=== PATIENT | male | born 1995 | race Caucasian/White ===

== ENCOUNTER 2017-08-05 18:47 | Emergency (ER) | payer SELFPAY ==
[2017-08-05 19:06] VITALS: BP 133/82
[2017-08-05] MEDS ORDERED: predniSONE TAB* 20 MG PO ONE (19:48)
[2017-08-05] MEDS ORDERED: Lidocaine 1% INJ* 10 MG/ML 30 ML SDV INJ ONE (19:49)
[2017-08-05] MEDS ORDERED: cefTRIAXone VIAL(*) 1,000 MG VIAL IM ONE (19:49)
--- NOTE | 2017-08-05 20:00 | RAD ---
INDICATION: Left hand injury COMPARISON: June 16, 2013 TECHNIQUE: AP and lateral views were obtained. FINDINGS: There are no acute bony findings. There is a healed fracture the proximal phalanx of the fifth digit. The joint spaces soft tissues are normal IMPRESSION: NO ACUTE BONY CHANGE. OLD, HEALED FIFTH METACARPAL FRACTURE.
--- NOTE | 2017-08-05 20:21 | ED ---
Upper Extremity Pain - HPI Summary HPI Summary: 22 yr old male with the complaint of trauma to left hand. Onset of symptoms two days ago when he hit his hand on the lever of a wood splitter. his pain is mostly in the 4th MP joint area. Pain moderate. 5/10. Non radiating. Worse with touching area. No other complaints. or injuries. He broke his 5th finger a few years ago. - History of Current Complaint Chief Complaint: UCUpperExtremity Stated Complaint: LEFT HAND PAIN Time Seen by Provider: 08/05/17 20:11 - Allergies/Home Medications Allergies/Adverse Reactions: Allergies Allergy/AdvReac Type Severity Reaction Status Date / Time Alcohol [From Whiskey] Allergy Decreased Verified 08/05/17 19:06 Respirations Bee Venom Allergy Swelling Verified 08/05/17 19:06 PMH/Surg Hx/FS Hx/Imm Hx Previously Healthy: Yes Infectious Disease History: No Infectious Disease History: Denies: Traveled Outside the [place] in Last 30 Days - Social History Alcohol Use: Weekly Alcohol Amount: 5x a week Substance Use Type: Reports: None Smoking Status (MU): Heavy Every Day Tobacco Smoker Type: Smokeless Tobacco Amount Used/How Often: 3 cans a week Length of Time of Smoking/Using Tobacco: 8-9 Years Have You Smoked in the Last Year: No Review of Systems Constitutional: Negative Positive: Other - contusion to his left hand All Other Systems Reviewed And Are Negative: Yes Physical Exam Triage Information Reviewed: Yes Vital Signs On Initial Exam: Initial Vitals Temp Pulse Resp BP Pulse Ox 98 F 94 16 133/82 98 08/05/17 19:02 08/05/17 19:02 08/05/17 19:02 08/05/17 19:02 08/05/17 19:02 Vital Signs Reviewed: Yes Appearance: Positive: Well-Appearing, No Pain Distress Skin: Positive: Warm Head/Face: Positive: Normal Head/Face Inspection Neck: Positive: Supple Cardiovascular: Positive: Pulses are Symmetrical in both Upper and Lower Extremities Musculoskeletal: Positive: Strength/ROM Intact, Other - no deformity to the left hand, he is tender to palpate the left 4th MP but no swelling or bruise. good range of motion. NV intact left hand. Neurological: Positive: Sensory/Motor Intact, Alert, Oriented to Person Place, Time, CN Intact II-III, Normal Gait, Speech Normal Psychiatric: Positive: Normal - [place] Coma Scale Best Eye Response: 4 - Spontaneous Best Motor Response: 6 - Obeys Commands Best Verbal Response: 5 - Oriented Diagnostics - Vital Signs Vital Signs Temp Pulse Resp BP Pulse Ox 08/05/17 19:02 98 F 94 16 133/82 98 - Laboratory Lab Statement: Any lab studies that have been ordered have been reviewed, and results considered in the medical decision making process. Course/Dx - Course Course Of Treatment: 22 yr with contusion to the left hand. DC home good condition. - Diagnoses Provider Diagnoses: Contusion Discharge - Discharge Plan Condition: Good Disposition: HOME Patient Education Materials: Contusion in Adults (ED) Referrals: No Primary Care Phys,NOPCP [Primary Care Provider] - Samantha Juárez MD [Medical Doctor] -
== END 2017-08-05 20:30 | disposition home or self-care (01) ==
LOC: UCCORT 18:47
DX: S60.222A Contusion of left hand, initial encounter (principal); W22.8XXA Striking against or struck by other objects, initial encounter; Z87.81 Personal history of (healed) traumatic fracture; F17.220 Nicotine dependence, chewing tobacco, uncomplicated; Z91.030 Bee allergy status
CPT/HCPCS: 99211; G0463; J2001

== ENCOUNTER 2018-03-03 20:58 | Emergency (ER) | payer SELFPAY ==
[2018-03-03 21:33] VITALS: BP 158/89
--- NOTE | 2018-03-03 21:39 | ED ---
Upper Extremity Pain - HPI Summary HPI Summary: 22 yr old male with the complaint of left hand and wrist pain. Onset this evening when his [employer] pull cord recoiled when he was pull starting it, and pulled his hand into the machine. Pain to the thumb and to the distal radius. Pain is moderate. He moves his wrist and hand, and no deformity. - History of Current Complaint Chief Complaint: UCUpperExtremity Stated Complaint: LEFT HAND INJURY Time Seen by Provider: 03/03/18 21:23 - Allergies/Home Medications Allergies/Adverse Reactions: Allergies Allergy/AdvReac Type Severity Reaction Status Date / Time bees Allergy Swelling Uncoded 03/03/18 21:32 Home Medications: Home Medications NK [No Home Medications Reported] 03/03/18 [History Confirmed 03/03/18] PMH/Surg Hx/FS Hx/Imm Hx Infectious Disease History: No Infectious Disease History: Denies: Traveled Outside the [place] in Last 30 Days - Family History Known Family History: Positive: None - Social History Occupation: Employed Full-time Lives: With Family Alcohol Use: Daily Alcohol Amount: 1-2 DAILY Substance Use Type: Reports: None Smoking Status (MU): Heavy Every Day Tobacco Smoker Type: Smokeless Tobacco Amount Used/How Often: 1.5 can/DAY Length of Time of Smoking/Using Tobacco: 8-9 Years Have You Smoked in the Last Year: No Review of Systems Positive: Other - left hand and wrist pain All Other Systems Reviewed And Are Negative: Yes Physical Exam Triage Information Reviewed: Yes Vital Signs On Initial Exam: Initial Vitals Temp Pulse Resp BP Pulse Ox 99.6 F 87 16 158/89 100 03/03/18 21:27 03/03/18 21:27 03/03/18 21:27 03/03/18 21:27 03/03/18 21:27 Vital Signs Reviewed: Yes Appearance: Positive: Well-Appearing, No Pain Distress Skin: Positive: Warm, Skin Color Reflects Adequate Perfusion Head/Face: Positive: Normal Head/Face Inspection Eyes: Positive: EOMI, KISHORE ENT: Positive: Normal ENT inspection Neck: Positive: Nontender Respiratory/Lung Sounds: Positive: Other - normal effort Cardiovascular: Positive: Pulses are Symmetrical in both Upper and Lower Extremities Abdomen Description: Negative: Distended Musculoskeletal: Positive: Other - mild diffuse tender over the thumb, left hand , left 1st metacarpal and over the distal radius, there is tenderness over snuff box. Neuro vasc intact. Neurological: Positive: Sensory/Motor Intact, Alert, Oriented to Person Place, Time, CN Intact II-III Psychiatric: Positive: Normal AVPU Assessment: Alert - [place] Coma Scale Best Eye Response: 4 - Spontaneous Best Motor Response: 6 - Obeys Commands Best Verbal Response: 5 - Oriented Coma Scale Total: 15 Procedures - Splinting Location: left hand wrist Hand-Made Type: orthoglass Splint: thumb spica Pre-Proc Neuro Vasc Exam: normal Post-Proc Neuro Vasc Exam: normal Diagnostics - Vital Signs Vital Signs Temp Pulse Resp BP Pulse Ox 03/03/18 21:27 99.6 F 87 16 158/89 100 - Laboratory Lab Statement: Any lab studies that have been ordered have been reviewed, and results considered in the medical decision making process. - Radiology wrist, hand Xray Interpretation: No Acute Changes - rad read as neg for fracture or dislocation Radiology Interpretation Completed By: ED Physician, Radiologist Course/Dx - Course Course Of Treatment: 22 yr old with left hand and wrist contusion. Plan thumb spike made and applied by me. PADDY with Ortho. - Diagnoses Provider Diagnoses: Occult fracture of scaphoid bone of left wrist, Hypertension Discharge - Sign-Out/Discharge Documenting (check all that apply): Discharge/Admit/Transfer - Discharge Plan Condition: Good Disposition: HOME Patient Education Materials: Suspected Fracture (ED), Scaphoid Fracture (ED) Referrals: No Primary Care Phys,NOPCP [Primary Care Provider] - Franck Colunga MD [Medical Doctor] - [facility]] - Billing Disposition and Condition Condition: GOOD Disposition: HOME
--- NOTE | 2018-03-03 22:07 | RAD ---
INDICATION: Pain from the left index finger to the left wrist COMPARISON: Left hand radiograph August 05, 2017. TECHNIQUE: 4 views of the left hand and 3 views of the left wrist were obtained. FINDINGS: Unchanged from the prior radiograph is a small metallic foreign body overlying the dorsal left wrist. The adequately corticated bones are in normal alignment. No significant focal osseous abnormality or fracture is seen. Joint spaces appear maintained. IMPRESSION: No radiographically apparent acute fracture or dislocation involving the left hand or wrist. If the patient's symptoms persist, follow-up imaging is recommended.
== END 2018-03-03 22:22 | disposition home or self-care (01) ==
LOC: UCCORT 20:58
DX: S62.002A Unspecified fracture of navicular [scaphoid] bone of left wrist, initial encounter for closed fracture (principal); W31.89XA Contact with other specified machinery, initial encounter; Y93.89 Activity, other specified; Y92.007 Garden or yard of unspecified non-institutional (private) residence as the place of occurrence of the external cause; I10 Essential (primary) hypertension; F17.210 Nicotine dependence, cigarettes, uncomplicated
CPT/HCPCS: 99211; G0463

== ENCOUNTER 2020-01-03 18:32 | Emergency (ER) | payer SELFPAY ==
[2020-01-03 18:46] VITALS: BP 131/97
--- NOTE | 2020-01-03 18:55 | UC ---
Shoulder Pain HPI - HPI Summary HPI Summary: 24 yo with acute injury to the right shoulder about 6 to 8 weeks ago, when a calf pulled sharply on the rope he was leading her by. [place] a sharp pain in the anterior right shoulder, with persistent loss of rom and pain since then. Pain radiates to the right scapular area. He has been using naproxen up to 1100 mg per day, averaging about 3 tabs per day. No GI upset. - History of Current Complaint Chief Complaint: UCUpperExtremity Stated Complaint: RIGHT SHOULDER INJURY Time Seen by Provider: 01/03/20 18:38 Hx Obtained From: Patient Onset/Duration: Sudden Onset, Lasting Weeks Timing: Constant Severity Initially: Moderate Severity Currently: Moderate Location Of Pain: Is Discrete @ - right anterior shoulder Pain Intensity: 4 Character: Aching Aggravating Factor(s): Movement, Lifting, Extension Alleviating Factor(s): Rest, OTC Meds Associated Signs And Symptoms: Positive: Negative - Risk Factors Non-Orthopedic Risk Factor: Negative DVT Risk Factors: Negative Septic Arthritis Risk Factor: Negative - Allergies/Home Medications Allergies/Adverse Reactions: Allergies Allergy/AdvReac Type Severity Reaction Status Date / Time bees Allergy Swelling Uncoded 01/03/20 18:40 Home Medications: Home Medications Naproxen Sodium [Aleve] 440 mg PO ONCE PRN 01/03/20 [History Confirmed 01/03/20] PMH/Surg Hx/FS Hx/Imm Hx Previously Healthy: Yes - Surgical History Surgical History: None - Family History Known Family History: Positive: Hypertension - mother - Social History Occupation: Employed Full-time Lives: With Family Alcohol Use: Rare Alcohol Amount: 1-2 DAILY Substance Use Type: None Smoking Status (MU): Never Smoked Tobacco Type: Smokeless Tobacco Amount Used/How Often: 1 can/ 2 DAYS Length of Time of Smoking/Using Tobacco: 13 Years Have You Smoked in the Last Year: No - Immunization History Most Recent Influenza Vaccination: no Most Recent Tetanus Shot: 4-5 years ago Review of Systems All Other Systems Reviewed And Are Negative: Yes Constitutional: Positive: Negative Skin: Positive: Negative Eyes: Positive: Negative ENT: Positive: Negative Respiratory: Positive: Negative Cardiovascular: Positive: Negative Gastrointestinal: Positive: Negative Genitourinary: Positive: Negative Motor: Positive: Negative Neurovascular: Positive: Negative Musculoskeletal: Positive: Arthralgia Neurological/Mental Status: Positive: Negative Psychological: Positive: Negative Is Patient Immunocompromised?: No Physical Exam Triage Information Reviewed: Yes Appearance: Well-Appearing, Pain Distress - moderate Vital Signs: Initial Vital Signs Temp 98.1 F 01/03/20 18:42 Pulse 95 01/03/20 18:42 Resp 18 01/03/20 18:42 BP 131/97 01/03/20 18:42 Pulse Ox 98 01/03/20 18:42 Vital Signs Reviewed: Yes Eye Exam: Normal ENT Exam: Normal Dental Exam: Normal Neck: Positive: Supple, Nontender Respiratory Exam: Normal Cardiovascular: Positive: RRR, No Murmur Musculoskeletal Exam: Other - + tenderness anterior joint line right shoulder. Tender to palpation lateral clavicle, with ? possible right shoulder subluxation. Musculoskeletal: Positive: Strength Intact, No Edema, ROM Limited @ - right shoulder with active abduction to 60 degrees only, pain with extension and flexion. Neurological: Positive: Alert, Muscle Tone Normal Psychological Exam: Normal Skin Exam: Normal Diagnostics - Radiology No standard instances Radiology Interpretation Completed By: ED Physician - No acute changes. Shoulder Course/Dx - Course Course Of Treatment: Given hx of injury with suspected tendon tear, advised referral to orthopedist for evaluation. Can continue use of naproxen daily. - Differential Dx/Diagnosis Differential Diagnosis/HQI/PQRI: Bursitis, Rotator Cuff Injury, Strain, Tendonitis Provider Diagnosis: Rotator cuff injury Discharge ED - Sign-Out/Discharge Documenting (check all that apply): Patient Departure All imaging exams completed and their final reports reviewed: No - Discharge Plan Condition: Stable Disposition: HOME Patient Education Materials: Rotator Cuff Injury (ED) Referrals: No Primary Care Phys,NOPCP [Primary Care Provider] - Franck Colunga MD [Medical Doctor] - Additional Instructions: Our radiologist will review your xrays in the morning, and you will be called if there is additional information. Please call Dr. Colunga's office tomorrow to arrange an orthopedic evaluation. Continue use of naproxen; your current dosing is appropriate. Stop use if you develop stomach upset. - Billing Disposition and Condition Condition: STABLE Disposition: Home
--- NOTE | 2020-01-04 13:41 | UC ---
- Progress Note Progress Note: xray report right shoulder : IMPRESSION: NO ACUTE OSSEOUS INJURY. IF SYMPTOMS PERSIST, RECOMMEND REPEAT IMAGING. Course/Dx - Diagnoses Provider Diagnoses: Rotator cuff injury Discharge ED - Sign-Out/Discharge Documenting (check all that apply): Patient Departure All imaging exams completed and their final reports reviewed: Yes - Discharge Plan Condition: Stable Disposition: HOME Patient Education Materials: Rotator Cuff Injury (ED) Referrals: Franck Colunga MD [Medical Doctor] - No Primary Care Phys,NOPCP [Primary Care Provider] - Additional Instructions: Our radiologist will review your xrays in the morning, and you will be called if there is additional information. Please call Dr. Colunga's office tomorrow to arrange an orthopedic evaluation. Continue use of naproxen; your current dosing is appropriate. Stop use if you develop stomach upset. - Billing Disposition and Condition Condition: STABLE Disposition: Home
== END 2020-01-03 19:31 | disposition home or self-care (01) ==
LOC: UCCORT 18:32
DX: S46.001A Unspecified injury of muscle(s) and tendon(s) of the rotator cuff of right shoulder, initial encounter (principal); X50.0XXA Overexertion from strenuous movement or load, initial encounter; Y93.89 Activity, other specified; Y92.79 Other farm location as the place of occurrence of the external cause; Z91.030 Bee allergy status; F17.220 Nicotine dependence, chewing tobacco, uncomplicated
CPT/HCPCS: 99211; G0463